=== PATIENT | male | born 1990 | race Caucasian/White ===

== ENCOUNTER 2017-04-12 13:38 | Emergency (ER) | payer SELFPAY ==
[~2017-04-12] VITALS: Ht 188 cm; Wt 95.5 kg
[~2017-04-12 13:38] MED LIST: AMOX875 PO; ERYT1O EACH EYE
[2017-04-12 13:40] VITALS: BP 133/93; PULSE 113; RESP 12; TEMP 98.6; O2SAT 98
[2017-04-12] MEDS ORDERED: ERYTOIN10 RIGHT EYE (14:53)
--- NOTE | 2017-04-12 14:54 | PD ---
HPI Chief Complaint: Eye Problems/Injury Time Seen by Provider: 14:06 Travel History International Travel<30 days: No Contact w/Intl Traveler<30days: No Traveled to known affect area: No History of Present Illness HPI Patient's 26-year-old male presenting to emergency for evaluation of right eye redness and tearing. Patient states his symptoms started 2 days ago, there are no alleviating factors. Symptoms are gradually, he reports mild photophobia but denies any visual changes or eye pain. He denies any cold or flulike symptoms. No crusting or yellow drainage reported. PFSH Past Medical History Arthritis: Yes (joints mostly right knee and ankle) Autoimmune Disease: Yes Anxiety: Yes Endocrine: No Gastrointestinal Disorders: Yes (CROHN'S DISEASE) Genitourinary: No Headaches: Yes Immune Disorder: Yes (CROHNS) Implanted Vascular Access Dvce: No Musculoskeletal: Yes Neurologic: Yes Respiratory: No Pneumonia: Yes Radiation Therapy: No Thyroid Disease: No Past Surgical History Abdominal Surgery: Yes (12 INCHES OF INTESTINE REMOVED 2005) Appendectomy: Yes Body Medical Devices: accordian drain to right abdomen Pacemaker: No Other Surgery: Yes (ROSENDA TUBES PLACED AT AGE 6) Family History Family Hypercholesterolemia: Yes Social History Alcohol Use: Yes (OCCASIONAL- LESS THEN TWICER PER MONTH) Tobacco Use: No Substance Use: No Allergies-Medications (Allergen,Severity, Reaction): Uncoded Allergies: ARTIFICIAL SWEETENER (Adverse Reaction, Severe, ABDOMINAL CRAMPING, ) Reported Meds & Prescriptions Reported Meds & Active Scripts Active Erythromycin Opth Oint 5 Mg/Gm Oint 1 Applic RIGHT EYE QID 7 Days Erythromycin Opht 0.5% Oint (Erythromycin) 0.5 % Oint 1 Applic EACH EYE BID 7 Days Instill 1/2 inch Amoxicillin 875 Mg Tab 875 Mg PO Q12HR Review of Systems Except as stated in HPI: all other systems reviewed are Neg General / Constitutional: No: Fever Eyes: Positive: Photophobia, Redness, Tearing, No: Blurred Vision, Foreign Body Sensation HENT: No: Congestion Physical Exam Narrative GENERAL: Well-developed, well-nourished, alert male. Resting complaint no acute distress. SKIN: Warm and dry. HEAD: Normocephalic. EYES: No scleral icterus. Moderate injection to the right eye, fluorescein exam shows a 1 mm corneal abrasion at the 5 o'clock position. Extraocular movements are intact. NECK: Supple, trachea midline. No JVD or lymphadenopathy. CARDIOVASCULAR: Regular rate and rhythm without murmurs, gallops, or rubs. RESPIRATORY: Breath sounds equal bilaterally. No accessory muscle use. GASTROINTESTINAL: Abdomen soft, non-tender, nondistended. MUSCULOSKELETAL: No cyanosis, or edema. BACK: Nontender without obvious deformity. No CVA tenderness. Data Data Last Documented VS Vital Signs Date Time Temp Pulse Resp B/P (MAP) Pulse Ox O2 Delivery O2 Flow Rate FiO2 04/12/17 13:40 98.6 113 12 133/93 (106) 98 Orders Orders Ed Discharge Order (04/12/17 14:55) MDM Medical Decision Making Medical Screen Exam Complete: Yes Emergency Medical Condition: Yes Interpretation(s) Vital Signs Date Time Temp Pulse Resp B/P (MAP) Pulse Ox O2 Delivery O2 Flow Rate FiO2 04/12/17 13:40 98.6 113 12 133/93 (106) 98 Differential Diagnosis Conjunctivitis versus abrasion versus iritis versus episcleritis versus other Narrative Course Patient's 26-year-old male presenting to emergency department for evaluation of Right eye redness and tearing, exam appears consistent with conjunctivitis, there was also noted a 1 mm abrasion to 5 o'clock position on the cornea. Patient was prescribed erythromycin ointment. He was encouraged to apply warm compresses to the affected area. He was encouraged return to our immediately for any new or worsening symptoms. He verbalized understanding of instructions. Patient is stable for discharge. Diagnosis Primary Impression: Conjunctivitis Qualified Codes: H10.31 - Unspecified acute conjunctivitis, right eye Additional Impression: Corneal abrasion Qualified Codes: S05.01XA - Injury of conjunctiva and corneal abrasion without foreign body, right eye, initial encounter Referrals: Javascript Ui Developer Patient Instructions: Conjunctivitis (ED), General Instructions Departure Forms: Tests/Procedures, Work Release Enter return to work date: Apr 14, 2017 Additional Instructions: Follow-up with an oil mixer and/or your primary doctor Return to emergency department immediately for any new or worsening symptoms May apply warm compress Use medications as directed Med/Other Pt SpecificInfo: Prescription(s) given Scripts Erythromycin Opth Oint (Erythromycin Opth Oint) 5 Mg/Gm Oint 1 APPLIC RIGHT EYE QID for Infection for 7 Days, #1 TUBE 0 Refills Prov: Sandra Jimenez 04/12/17 Disposition: 01 DISCHARGE HOME Condition: Stable Sandra Jimenez Apr 12, 2017 14:54
== END 2017-04-12 15:03 | disposition home or self-care (01) ==
LOC: NEPK 13:38
DX: H10.31 Unspecified acute conjunctivitis, right eye (principal); S05.01XA Injury of conjunctiva and corneal abrasion without foreign body, right eye, initial encounter; Z87.39 Personal history of other diseases of the musculoskeletal system and connective tissue; Z87.19 Personal history of other diseases of the digestive system; Z86.59 Personal history of other mental and behavioral disorders; Z86.69 Personal history of other diseases of the nervous system and sense organs; X58.XXXA Exposure to other specified factors, initial encounter
CPT/HCPCS: 99283